=== PATIENT | male | born 1995 | race Caucasian/White ===

== ENCOUNTER 2018-07-30 20:53 | Emergency (ER) | payer OTHER | END 2018-07-30 22:21 | disposition other institution (70) | LOC: ED 20:53 | DX: Z02.89 Encounter for other administrative examinations (principal) ==

== ENCOUNTER 2018-07-30 20:53 | Emergency (ER) | payer SELFPAY ==
[~2018-07-30] VITALS: Ht 170.2 cm; Wt 63.5 kg
[2018-07-30 20:55] VITALS: Ht 170.2 cm; Wt 63.5 kg
[2018-07-30 22:21] VITALS: BP 137/76
== END 2018-07-30 22:21 | disposition other institution (70) ==
LOC: ED 20:53
DX: S05.42XA Penetrating wound of orbit with or without foreign body, left eye, initial encounter (principal); S16.1XXA Strain of muscle, fascia and tendon at neck level, initial encounter; F17.210 Nicotine dependence, cigarettes, uncomplicated; Z98.890 Other specified postprocedural states; Y04.8XXA Assault by other bodily force, initial encounter; Y93.89 Activity, other specified; Y92.89 Other specified places as the place of occurrence of the external cause; Y99.8 Other external cause status